=== PATIENT | female | born 1960 | race Native Hawaiian/Other Pacific Islander ===

== ENCOUNTER 2016-09-07 22:35 | Emergency (ER) | payer OTHER ==
[~2016-09-07] VITALS: Ht 152.4 cm; Wt 49.9 kg
[2016-09-07] MEDS ORDERED: FLONAS NAS (22:47)
[2016-09-07] MEDS ORDERED: FLONASE (22:49)
--- NOTE | 2016-09-07 22:49 | NUR ---
Dr. Ortiz at bedside.
[2016-09-07 23:09] LABS: BASOPHILS # (AUTO) 0.1 K/uL (0.0-8.0); BASOPHILS % (AUTO) 1.1 % (0.0-2.0); EOSINOPHILS # (AUTO) 0.2 K/uL (0.0-0.7); EOSINOPHILS % (AUTO) 3.6 % (0.0-7.0); HEMATOCRIT 37.5 % (37-47); HEMOGLOBIN 12.4 G/DL (12.0-16.0); LYMPHOCYTES % (AUTO) 32.1 % (20.5-51.5); MEAN CORPUSCULAR HEMOGLOBIN 31.4 UUG (27.0-31.0); MEAN CORPUSCULAR HGB CONC 33 g/dL (32.0-37.0); MONOCYTES # (AUTO) 0.4 K/UL (0.1-1.30); MONOCYTES % (AUTO) 6.6 % (0.0-11.0); NEUTROPHILS # (AUTO) 3.5 K/UL (1.8-8.9); NEUTROPHILS % (AUTO) 56.6 % (38.5-71.5); PLATELET COUNT (AUTO) 278 K/UL (150-450); RED BLOOD CELL COUNT(AUTO) 3.95 MIL/UL (4.2-5.4); WHITE BLOOD COUNT (AUTO) 6.2 K/UL (4.0-11.2)
[2016-09-07 23:20] LABS: CREATININE 0.6 mg/dL (0.6-1.3); POTASSIUM 3.9 mmol/L (3.5-5.1)
[2016-09-07 23:26] LABS: BILIRUBIN,DIRECT 0.1 mg/dL (0.0-0.2); BILIRUBIN,TOTAL 0.2 mg/dL (0.2-1.0); TOTAL PROTEIN, SERUM 7.6 g/dL (6.4-8.2)
--- NOTE | 2016-09-08 00:54 | NUR ---
PT BROUGHT IN A BOUT 1HRS WORTH OF BLOOD PRESSURES.PRESSURES REMAIN ELEVATED.PT HAS TAKEN TYLENOL FOR H/A.PT STATES H/A NOW IN EYE AREA.[facility] SPEAKING WITH PT.ALANIS REQUESTING [facility] BE CALLED SO HE CAN GIVE THEM HER INFO.CALLED [facility] SPOKE WITH MARIELOS.PTS INFO GIVEN,[facility] CARD NUMBER AND BIRTHDATE.I WAS TOLD SYSTEM IS DOWN AND THEY ARE UNABLE TO FIND PT IN THE SYSTEM.TOLD HER I WOULD CALL BACK IN ABOUT 1 HR
--- NOTE | 2016-09-08 01:03 | NUR ---
Patient discharged to home in stable conditon. Written and verbal after care instructions given. Patient verbalizes understanding of instructions.
[2016-09-08 01:04] VITALS: BP 142/87
== END 2016-09-08 01:05 | disposition home or self-care (01) ==
LOC: ER 22:37
DX: I10 Essential (primary) hypertension (principal); R42 Dizziness and giddiness
CPT/HCPCS: 36415; 80048; 80076; 84484; 85025; 85379; 85730; 93005; 99285; A4663; 70030-TC